=== PATIENT | female | born 2005 | race Caucasian/White ===

== ENCOUNTER → 2025-02-02 | Outpatient (CLI) | payer BC, SELFPAY ==
--- NOTE | 2025-02-02 | XR_ITS ---
Examination: Abdomen AP single view Technique: AP portable supine abdomen, single view Exam date and time: February 02, 2025 1139 hours INDICATIONS: Diarrhea 5 days. FINDINGS: Mild colonic ileus No obstruction No free air Intact osseous structures IMPRESSION: Mild colonic ileus
== END | disposition home or self-care (01) ==
PROVIDERS: PCP Family Medicine; Referring Provider Radiology Radiation Oncology; Visit Provider Radiology Radiation Oncology
DX: K56.7 Ileus, unspecified (principal)
CPT/HCPCS: 74018

== ENCOUNTER 2025-06-27 10:13 | Emergency (ER) | payer BC, SELFPAY ==
[2025-06-27 10:20] VITALS: BP 110/80; PULSE 90; RESP 16; TEMP 37.2; O2SAT 96; BMI 19.9
--- NOTE | 2025-06-27 10:30 | PD.EDRME ---
Rapid Medical Screening Exam E Arrival date/time: 06/27/25 10:13 20-year-old female presents to the Emergency Department for complaint of lower abdominal pain ongoing x 2 days Chief Complaint: Abdominal Pain Vital signs: Vital Signs Temperature 98.9 F 06/27/25 10:20 Pulse Rate 90 06/27/25 10:20 Respiratory Rate 16 06/27/25 10:20 Blood Pressure 110/80 06/27/25 10:20 Pulse Oximetry (%) 96 06/27/25 10:20 Oxygen Delivery Method Room Air 06/27/25 10:20
[2025-06-27 10:57] LABS: Basophils # (Auto) 0.0 Thou/mm3 (0.0-0.2); Basophils % (Auto) 0 % (0-2.5); Eosinophils # (Auto) 0.1 Thou/mm3 (0.0-0.5); Eosinophils % (Auto) 1 % (0-10); Hematocrit 43.9 % (36.0-46.0); Hemoglobin 14.4 g/dL (12.0-16.0); Immature Granulocytes Auto 0.02 Thou/mm3 (0.00-0.00); Lymphocytes # (Auto) 2.2 Thou/mm3 (1.0-4.8); Lymphocytes % (Auto) 28 % (10-50); Mean Corpuscular HGB Conc 32.8 g/dl (31.0-37.0); Mean Corpuscular Hemoglobin 28.5 pg (25.0-35.0); Mean Corpuscular Volume 87 fL (80-100); Monocytes # (Auto) 0.7 Thou/mm3 (0.0-0.8); Monocytes % (Auto) 9 % (0-12); Neutrophils # (Auto) 4.9 Thou/mm3 (1.8-7.7); Neutrophils % (Auto) 62 % (37-80); Nucleated Red Blood Cell # 0.00 Thou/mm3 (0.00-0.00); Nucleated Red Blood Cell % 0 /100 WBC (0); Platelet Count 354 Thou/mm3 (140-440); RDW Standard Deviation 43.9 fL (36.4-46.3); Red Blood Count 5.05 Miln/mm3 (4.00-5.20); White Blood Count 7.9 Thou/mm3 (3.6-11.0)
[2025-06-27 11:28] LABS: Collection Type, Urine Clean Catch
[2025-06-27 11:50] LABS: Alanine Aminotransferase 16 U/L (10-49); Albumin, Serum 4.7 gm/dL (3.5-5.0); Albumin/Globulin Ratio 1.7 (1.2-2.2); Alkaline Phosphatase 72 U/L (46-116); Amylase 76 U/L (30-118); Anion Gap 10 (7-16); Aspartate Amino Transferase 21 U/L (0-34); BUN/Creatinine Ratio 13 Ratio (12-20); Bilirubin,Total 1.0 mg/dL (0.3-1.2); Blood Urea Nitrogen 8 mg/dL (9-23); C-Reactive Protein < 0.5 mg/dL (0.0-0.9); Calcium 9.6 mg/dL (8.3-10.6); Calcium (Corrected) 9.6 mg/dL (8.5-10.1); Carbon Dioxide 24.1 mMol/L (20.0-31.0); Chloride 106 mMol/L (98-107); Creatinine (Component) 0.6 mg/dL (0.6-1.3); Estimated Creatinine Clearance 115.8 mL/min (>60); Globulin 2.7 gm/dL (2.3-3.5); Glucose 77 mg/dL (74-106); Osmolality,Calculated 276 (275-295); Potassium 4.0 mMol/L (3.4-5.1); Sodium 140 mMol/L (136-145); Total Protein 7.4 gm/dL (5.7-8.2); eGFR > 60 See Note
[2025-06-27 12:09] LABS: Bacteria,Urine Rare; Bilirubin,Urine Negative (Negative); Blood,Urine 3+ (Negative); Color,Urine Drk-Yellow (Lt Yel-Yel); Culture Indicated,Urine Contaminated; Glucose, Urine Negative (Negative); Ketones,Urine 2+ (Negative); Leukocyte Esterase,Urine Positive (Negative); Nitrite,Urine Negative (Negative); PH,Urine 5.5 (5.0-7.0); Protein,Urine Trace (Neg - Trace); RBC,Urine 727 /hpf (0-3); Specific Gravity,Urine 1.027 (1.001-1.035); Squamous Epithelial Cell,Urine 16 /hpf (0-5); Urobilinogen,Urine Negative mg/dL (0.0-1.0); WBC,Urine 36 /hpf (0-5)
[2025-06-27 12:32] LABS: HCG Qualitative,Urine Negative
[2025-06-27 12:33] LABS: Clarity,Urine Hazy (Clear/Hazy)
--- NOTE | 2025-06-27 16:39 | EDNOTE_ITS ---
<Statement entered by Pavithra Alfaro MD - 07/16/25 06:11> As co-signing physician, I was present and available for consult prn. I concur with the plan and care as documented by the midlevel provider. ED General RME/HPI General Chief complaint: Abdominal Pain Stated complaint: ABD PAIN Time Seen by Provider: 06/27/25 11:21 Arrival date/time: 06/27/25 10:13 RME / HPI RME / HPI narrative: 20-year-old female patient came in for evaluation regarding pelvic discomfort. Patient has been having dysuria, pelvic discomfort, urgency, has been ongoing for the last 2 days severity moderate. Patient denies any fever denies any vomiting denies any vaginal bleeding spotting or abnormal vaginal discharge. Denies any other complaints. Related Data Previous Rx's ?Medication ?Instructions ?Recorded cephalexin 500 mg capsule 500 mg PO Q6H 7 days #28 cap s 06/27/25 Allergies Allergy/AdvReac Type Severity Reaction Status Date / Time NKA* Allergy Uncoded 01/22/15 18:43 Review of Systems Review of Systems Narrative Review of Systems: Review of system reviewed and within normal limits except mentioned in HPI ED Exam Narrative Physical exam: VITAL SIGNS: Reviewed. GENERAL APPEARANCE: Alert and interactive, follows commands, no acute distress, HEAD AND FACE: Non-traumatic. ENT: PERRL, pink conjunctivitis, eyelid no trauma, Mucous membrane moist. NECK: Supple, nontender, no nuchal rigidity. CHEST: No tenderness, no crepitus, no paradoxical movement, no retractions. LUNGS: Clear, well ventilated, symmetric, no rales, no wheezing, no ronchi, no stridor, good breath sounds bilaterally. HEART: Regular rate, regular rhythm, no murmur, no gallops. ABDOMEN: Soft, positive bowel sounds, nondistended, no guarding, nontender, no rebound, no masses, RECTAL: Deferred. GENITAL: Deferred. NEUROLOGICAL: Gross motor function intact sensory function intact, Appropriate for age. MUSCULOSKELETAL: low back nontender, full range of motion. EXTREMITIES: Nontender, full range of motion. SKIN: Color pink, dry, no rash, no lacerations, no abrasions, no contusions. LYMPHATICS: Deferred. Course Quality Measures none Orders Category Date Time Status Amylase Stat Lab 06/27/25 10:46 Completed CBC Stat Lab 06/27/25 10:46 Completed CRP [C-Reactive Protein] Stat Lab 06/27/25 10:46 Completed Comprehensive Metabolic Panel Stat Lab 06/27/25 10:46 Completed HCG Qualitative,Urine Stat Lab 06/27/25 11:17 Completed UA, C/S IF [Urinalysis, C/S if Indicated] Stat Lab 06/27/25 11:17 Completed Vital Signs Vital signs: Vital Signs Temperature 98.9 F 06/27/25 10:20 Pulse Rate 90 06/27/25 10:20 Respiratory Rate 16 06/27/25 10:20 Blood Pressure 110/80 06/27/25 10:20 Pulse Oximetry (%) 96 06/27/25 10:20 Oxygen Delivery Method Room Air 06/27/25 10:20 Discharge Plan Plan Patient Disposition: HOME (Self Care) Discharge Disposition comment: stable Prescriptions/Referrals Prescriptions/Med Rec: New cephalexin 500 mg capsule 500 mg PO Q6H 7 Days Qty: 28 0RF Referrals: Patricia Alvarez MD [Primary Care Provider, Family Practice] - In 1 week Problem List Clinical Impression: UTI (urinary tract infection) Patient/Caregiver Discharge Instructions Discharge Activity: activity as tolerated Education Materials: Understanding Urinary Tract ... Additional Instructions: Thank you for the opportunity for serving you today. You are stable for discharged . You are advised to: Follow-up with your PCP in 1 to 2 days Return to ED for worsening of symptoms Increase oral fluids Take medication as prescribed Print Language: Urdu Stand Alone Forms: Ev Award Info., Patient Portal Info Letter NORMA/BEATRIZ Supervising Physician NORMA/BEATRIZ Supervising Physician: MD Perla MDM Narrative MDM hospital course (for use when minimal MDM required): 20-year-old female patient came in for evaluation regarding pelvic discomfort. Patient has been having dysuria, pelvic discomfort, urgency, has been ongoing for the last 2 days severity moderate. Patient denies any fever denies any vomiting denies any vaginal bleeding spotting or abnormal vaginal discharge. Denies any other complaints. Patient's CBC came back with no leukocytosis, urinalysis positive for UTI however is not a very good urine collection. With patient's symptoms patient will be sent home on antibiotic. She is not . Patient appears nontoxic and hemodynamically stable .Decision to discharge the patient. The patient/family was given an opportunity to ask questions and understood their discharge instructions. Discharge instructions specifically included follow up provider and time frame, current and/or new medications and possible side effects, indications for sooner follow up or return to the emergency department, and the expected course of current diagnosis. Patient reports feeling better as well and giving evidence of significant clinical improvement, I believe patient is now a candidate for discharge. Diagnosis Differential Diagnosis ED Complaint MDM: UTI, cystitis, , dysuria Diagnoses ruled out and/or further discussions: UTI
== END 2025-06-27 17:20 | disposition home or self-care (01) ==
PROVIDERS: Nurse Practitioner Primary Care; Emergency Provider Nurse Practitioner Family; PCP Family Medicine
DX: N39.0 Urinary tract infection, site not specified (principal)
CPT/HCPCS: 36415; 80053; 81001; 81025; 82150; 85025; 86140; 99283